=== PATIENT | female | born 1985 ===

== ENCOUNTER 2024-10-17 14:15 | Inpatient (IN) | payer OTHER ==
[~2024-10-17] VITALS: Ht 165.1 cm; Wt 60.3 kg
[2024-10-26 21:27] VITALS: BP 132/80
[2024-10-26] MEDS ORDERED: PRENATAL TABLE1 EAC4 PO (21:45)
[2024-10-26] MEDS ORDERED: FAMOTIDINE/PF 20 MG/2 ML VIAL IV PUSH PRN (22:00)
[2024-10-26] MEDS ORDERED: ONDANSETRON HCL 2 MG/ML VIAL IV PRN (22:00)
[2024-10-26] MEDS ORDERED: RINGERS SOLUTION,LACTATED 1,000 ML IV SCH (22:00)
[2024-10-26] MEDS ORDERED: MORPHINE SULFATE 4 MG/ML CARTRIDGE IV PRN (22:00)
[2024-10-26] MEDS ORDERED: ACETAMINOPHEN 500 MG GEL..CAP PO PRN (22:00)
[2024-10-26 23:18] LABS: BASO % 0.3 % (0.1-1.2); EOS # 0.08 (0.04-0.54); EOS % 0.8 % (0.7-7.0); LYMPH # 1.53 (1.18-3.74); LYMPH % 15.5 % (19.3-53.1); MEAN PLATELET VOLUME 11.30 fl (9.4-12.4); MONO # 0.65 (0.24-0.82); MONO % 6.6 % (4.7-12.5); NEUT # 7.47 (1.56-6.13); NEUT % 75.9 % (34.0-71.1); RED CELL DISTRIBUTION WIDTH 12.7 % (11.6-14.4)
[2024-10-26 23:33] VITALS: BP 111/72
[2024-10-26 23:33] LABS: INR < 0.93
[2024-10-26 23:37] LABS: ALT/SGPT 12.0 U/L (12-78); AST/SGOT 11.0 U/L (15-37); BILIRUBIN TOTAL 0.3 mg/dL (0.3-1.2); BUN CREA RATIO 15.0 (7.0-25.0); CREATININE SERUM 0.48 mg/dL (0.55-1.02); GFR 144.74; GLOBULINA 3.6 G/DL (2.4-3.5); GLUCOSE FASTING 112.0 mg/dL (65-100); OSMOLALITY SERUM 274.0 MOSM/KG (275-295)
[2024-10-27 04:10] VITALS: BP 107/64
[2024-10-27 07:10] VITALS: BP 131/75
[2024-10-27] MEDS ORDERED: OXYTOCIN 20 UNITS/1000ML RL PIGGYBAG IV ONE (10:08)
[2024-10-27] MEDS ORDERED: LIDOCAINE HCL 1% 10ML VIAL ONE (10:08)
[2024-10-27] MEDS ORDERED: ERYTHROMYCIN BASE OPHT 1GM EACH TUBE OP ONE (10:08)
[2024-10-27] MEDS ORDERED: CHLORHEXIDINE GLUCONATE 120 ML BOTTLE TOP ONE (10:08)
[2024-10-27] MEDS ORDERED: OXYTOCIN 20 UNITS/500ML RL PIGGYBAG IV ONE (10:38)
[2024-10-27] MEDS ORDERED: OXYTOCIN 500 ML IV ONE (10:45)
[2024-10-27 13:00] VITALS: BP 128/79
[2024-10-27 15:18] VITALS: BP 83/46
[2024-10-27 15:51] LABS: BASO % 0.3 % (0.1-1.2); EOS # 0.04 (0.04-0.54); EOS % 0.2 % (0.7-7.0); LYMPH # 1.31 (1.18-3.74); LYMPH % 6.8 % (19.3-53.1); MEAN PLATELET VOLUME 11.20 fl (9.4-12.4); MONO # 0.95 (0.24-0.82); MONO % 4.9 % (4.7-12.5); NEUT # 16.78 (1.56-6.13); NEUT % 87.1 % (34.0-71.1); RED CELL DISTRIBUTION WIDTH 12.8 % (11.6-14.4)
[2024-10-27] MEDS ORDERED: CEFAZOLIN SODIUM 1,000 MG VIAL ONE (16:21)
[2024-10-27] MEDS ORDERED: HEMOSTATIC MATRIX 1 KIT KIT TOP NR (16:40)
[2024-10-27] MEDS ORDERED: BACITRACIN 28.35 GM OINT.TUBE TOP ONE (17:00)
[2024-10-27 18:09] LABS: BASO % 0.2 % (0.1-1.2); EOS # 0.02 (0.04-0.54); EOS % 0.1 % (0.7-7.0); LYMPH # 1.21 (1.18-3.74); LYMPH % 6.9 % (19.3-53.1); MEAN PLATELET VOLUME 11.10 fl (9.4-12.4); MONO # 1.16 (0.24-0.82); MONO % 6.6 % (4.7-12.5); NEUT # 14.98 (1.56-6.13); RED CELL DISTRIBUTION WIDTH 12.7 % (11.6-14.4)
[2024-10-27 18:36] LABS: BAND MAN 5.0 %; LYMPHOCYTE MAN 7.0 %; MONOCYTE MAN 5.0 %; NEUT % 85.5 % (34.0-71.1); NEUTROPHILS MAN 81.0 %
[2024-10-27 18:53] LABS: ALT/SGPT 12.0 U/L (12-78); AST/SGOT 50.0 U/L (15-37); BILIRUBIN TOTAL 0.3 mg/dL (0.3-1.2); BUN CREA RATIO 15.0 (7.0-25.0); CREATININE SERUM 0.34 mg/dL (0.55-1.02); GFR 215.48; GLOBULINA 2.0 G/DL (2.4-3.5); GLUCOSE FASTING 95.0 mg/dL (65-100); OSMOLALITY SERUM 278.0 MOSM/KG (275-295)
[2024-10-27 19:33] LABS: INR 0.98
[2024-10-27 22:59] VITALS: BP 107/72; O2SAT 97
[2024-10-28 00:15] VITALS: BP 88/50
[2024-10-28 09:27] VITALS: BP 96/62
[2024-10-28 15:33] LABS: BASO % 0.3 % (0.1-1.2); EOS # 0.09 (0.04-0.54); EOS % 0.6 % (0.7-7.0); LYMPH # 1.30 (1.18-3.74); LYMPH % 8.3 % (19.3-53.1); MEAN PLATELET VOLUME 10.90 fl (9.4-12.4); MONO # 0.97 (0.24-0.82); MONO % 6.2 % (4.7-12.5); NEUT # 13.06 (1.56-6.13); NEUT % 83.8 % (34.0-71.1); RED CELL DISTRIBUTION WIDTH 14.6 % (11.6-14.4)
[2024-10-28 15:57] LABS: INR 0.94
[2024-10-28 16:55] VITALS: BP 99/62
[2024-10-29 00:23] VITALS: BP 101/68; O2SAT 96
[2024-10-29 03:51] VITALS: BP 106/73; O2SAT 97
[2024-10-29 08:53] VITALS: BP 107/67
[2024-10-29 10:42] LABS: BASO % 0.4 % (0.1-1.2); EOS # 0.22 (0.04-0.54); EOS % 1.3 % (0.7-7.0); LYMPH # 1.59 (1.18-3.74); LYMPH % 9.5 % (19.3-53.1); MEAN PLATELET VOLUME 10.40 fl (9.4-12.4); MONO # 0.83 (0.24-0.82); MONO % 5.0 % (4.7-12.5); NEUT # 13.85 (1.56-6.13); NEUT % 82.5 % (34.0-71.1); RED CELL DISTRIBUTION WIDTH 14.7 % (11.6-14.4)
[2024-10-29 13:38] VITALS: BP 120/80
[2024-10-29 16:00] VITALS: BP 149/88
[2024-10-29 20:00] VITALS: BP 112/72
[2024-10-30] VITALS: BP 116/77; O2SAT 97
[2024-10-30 05:30] VITALS: BP 114/75
[2024-10-30 07:51] VITALS: BP 113/72; O2SAT 98
[2024-10-30 13:08] VITALS: BP 115/71; O2SAT 97
== END 2024-10-30 15:10 | disposition home or self-care (01) | DRG 768 ==
LOC: LDR 10-26 21:44 → OB/GYN 10-26 21:44 → LDR 11-01 14:15
PROVIDERS: Obstetrics & Gynecology Gynecology; ADMIT Obstetrics & Gynecology; ATTEND Obstetrics & Gynecology
PROC: 4A1HXCZ Monitoring of Products of Conception, Cardiac Rate, External Approach (ICD-10-PCS; 2024-10-26)
PROC: 0UQC7ZZ Repair Cervix, Via Natural or Artificial Opening (ICD-10-PCS; 2024-10-27)
PROC: 0UQG7ZZ Repair Vagina, Via Natural or Artificial Opening (ICD-10-PCS; 2024-10-27)
PROC: 10E0XZZ Delivery of Products of Conception, External Approach (ICD-10-PCS; principal; 2024-10-27 15:30)
PROC: 30233N1 Transfusion of Nonautologous Red Blood Cells into Peripheral Vein, Percutaneous Approach (ICD-10-PCS; 2024-10-28)
DX: O71.3 Obstetric laceration of cervix (principal); O71.4 Obstetric high vaginal laceration alone; O99.02 Anemia complicating childbirth; D64.9 Anemia, unspecified; Z37.0 Single live birth; Z3A.39 39 weeks gestation of pregnancy

== ENCOUNTER → 2024-10-26 | Outpatient (CLI) | payer OTHER ==
[~2024-10-26] MED LIST: HEMOSTATIC MATRIX 1 KIT KIT TOP ONE; PRENATAL TABLE1 EAC4 PO
== END | disposition home or self-care (01) ==
LOC: OBS/DEL 17:59
PROVIDERS: ATTEND Obstetrics & Gynecology Gynecology
DX: O26.893 Other specified pregnancy related conditions, third trimester (principal); Z3A.39 39 weeks gestation of pregnancy